=== PATIENT | male | born 1995 | race Two or more races ===

== ENCOUNTER → 2024-06-02 | Outpatient (CLI) | payer SELFPAY ==
--- NOTE | 2024-06-02 11:25 | XR_ITS ---
Examination: Lumbar spine 3 views Technique one AP lateral coned lateral lower lumbar spine 3 views Exam date and time: June 02, 2024 1129 hours INDICATIONS: Low back pain beginning today. FINDINGS: Adequate alignment lumbar vertebral bodies No lumbar fracture Mild disc narrowing L5-S1 No spondylolisthesis IMPRESSION: Mild disc narrowing L5-S1
== END | disposition home or self-care (01) ==
PROVIDERS: PCP Obstetrics & Gynecology; Referring Provider Obstetrics & Gynecology; Visit Provider Obstetrics & Gynecology
DX: M48.07 Spinal stenosis, lumbosacral region (principal)
CPT/HCPCS: 72100